=== PATIENT | male | born 1970 | race Caucasian/White ===

== ENCOUNTER 2017-03-06 05:30 | Day surgery (SDC) | payer BC ==
[~2017-03-06] VITALS: Ht 172.7 cm; Wt 94.8 kg
[~2017-03-06 05:30] MED LIST: ARTIFICIAL TEAR1512 EACH EYE; EXCEDRIN MIGRA1 EAC3 PO; FLOMAX0.4 M1 PO; IMITREX25 M1 PO; KLOR-CON M1010 ME1; LASIX40 M1 PO; NAPROSYN500 M1; PEPCID20 M1 PO; PRINIVIL5 M1 PO
== END 2017-03-06 13:25 ==
LOC: SRG 05:30 → SHSC 06:06 → ORW 07:34 → PACU 10:07 → SHSC 10:40 → SRG 13:25
PROC: 0YU54JZ Supplement Right Inguinal Region with Synthetic Substitute, Percutaneous Endoscopic Approach (ICD-10-PCS; principal; 2017-03-06)
PROC: 8E0W4CZ Robotic Assisted Procedure of Trunk Region, Percutaneous Endoscopic Approach (ICD-10-PCS; 2017-03-06)
DX: K40.90 Unilateral inguinal hernia, without obstruction or gangrene, not specified as recurrent (principal); I10 Essential (primary) hypertension; H04.129 Dry eye syndrome of unspecified lacrimal gland; K21.0 Gastro-esophageal reflux disease with esophagitis; Z88.0 Allergy status to penicillin; Z88.8 Allergy status to other drugs, medicaments and biological substances; Z79.899 Other long term (current) drug therapy
CPT/HCPCS: C1781; J1650; J1956